=== PATIENT | male | born 1980 | race Caucasian/White ===

== ENCOUNTER 2017-07-01 00:55 | Emergency (ER) | payer OTHER ==
[~2017-07-01] VITALS: Ht 170.2 cm; Wt 77.0 kg
[2017-07-01 01:40] VITALS: BP 133/76
== END 2017-07-01 01:50 | disposition home or self-care (01) ==
LOC: EMS 00:56
DX: J06.9 Acute upper respiratory infection, unspecified (principal)
CPT/HCPCS: 99281

== ENCOUNTER 2020-08-12 12:04 | Emergency (ER) | payer OTHER ==
[~2020-08-12] VITALS: Ht 170.2 cm; Wt 81.4 kg
[2020-08-12] MEDS ORDERED: PERTUSS(ACELL),DIPH,TET VAC/PF 0.5 ML SYRINGE IM. ONE (12:45)
[2020-08-12] MEDS ORDERED: LIDOCAINE 1%/EPI 1:200,000/PF 30 ML VIAL PERC ONE (12:45)
[2020-08-12] MEDS ORDERED: BACITRACIN 0.9 GM PACKET OINTMENT TP ONE (14:15)
[2020-08-12 14:25] VITALS: BP 135/87
== END 2020-08-12 14:48 | disposition home or self-care (01) ==
LOC: EMS 12:04
DX: S71.112A Laceration without foreign body, left thigh, initial encounter (principal); W45.8XXA Other foreign body or object entering through skin, initial encounter; Y93.89 Activity, other specified; Y92.89 Other specified places as the place of occurrence of the external cause; Y99.8 Other external cause status
CPT/HCPCS: 12004; 73562; 90471; 90715; 99283; J3490

== ENCOUNTER 2020-09-16 17:30 | Emergency (ER) | payer OTHER ==
[~2020-09-16] VITALS: Ht 167.6 cm; Wt 77.3 kg
[2020-09-16] MEDS ORDERED: IBUPROFEN 600 MG TABLET PO ONE (18:30)
[2020-09-16] MEDS ORDERED: HYDROCORTISONE 2.5% 30 GM CREAM TP ONE (18:30)
[2020-09-16 19:01] VITALS: BP 143/84
== END 2020-09-16 19:13 | disposition home or self-care (01) ==
LOC: EMS 17:39
DX: K64.4 Residual hemorrhoidal skin tags (principal); K60.2 Anal fissure, unspecified; F17.200 Nicotine dependence, unspecified, uncomplicated; F12.90 Cannabis use, unspecified, uncomplicated
CPT/HCPCS: 99283

== ENCOUNTER 2020-12-28 21:11 | Emergency (ER) | payer OTHER ==
[~2020-12-28] VITALS: Ht 170.2 cm; Wt 79.5 kg
[2020-12-28 21:12] VITALS: BP 124/76
[2020-12-28] MEDS ORDERED: KETOROLAC TROMETHAMINE 60 MG/2 ML VIAL IM ONE (22:30)
[2020-12-28] MEDS ORDERED: LIDOCAINE 2%/EPI 1:200,000/PF 20 ML VIAL SQ ONE (22:30)
== END 2020-12-29 00:16 | disposition home or self-care (01) ==
LOC: EMS 21:14
DX: K61.1 Rectal abscess (principal); F17.200 Nicotine dependence, unspecified, uncomplicated; F12.90 Cannabis use, unspecified, uncomplicated
CPT/HCPCS: 46050; 99284; J1885; 46040